=== PATIENT | female | born 1945 | race Caucasian/White ===

== ENCOUNTER 2019-09-30 08:01 | Day surgery (SDC) | payer MEDICARE, OTHER ==
[2019-09-29 09:55] VITALS: BMI 23.2
[~2019-09-30 08:01] MED LIST: DEXAMETHASONE SOD PHOSPHATE 10 MG/ML 1 ML VIAL IV ONE; LACTATED RINGERS 1,000 ML IV SCH; LIDOCAINE 1% (10MG/ML) FOR IV START INTRADERMA PRN; MOXIFLOXACIN HCL 0.5% DROPS 3 ML BTL OP ONE; ONDANSETRON 4 MG/2 ML VIAL IVP ONE; TETRACAINE 0.5% OPHTH (PF) DROPS 4 ML BTL OP ONE; TIMOLOL 0.5% OPHTH DROPS 5 ML BTL OP ONE
[2019-09-30 09:29] VITALS: TEMP 98
[2019-09-30] MEDS: CYCLOPENTOLATE 1% OPHTH SOLN 2 ML BTL OP ONE ×3 (09:33→09:46)
[2019-09-30] MEDS: PHENYLEPHRINE 2.5% OPHTH DRP 2ML OP NR ×3 (09:39→09:48)
[2019-09-30] MEDS ORDERED: LIDOCAINE 1% (PF) 10MG/ML VIAL SQ ONE (10:12)
[2019-09-30] MEDS ORDERED: TRYPAN BLUE 0.06% SYRINGE 0.5 ML SYRINGE INTRAOCULA ONE (10:12)
[2019-09-30] MEDS ORDERED: BALANCED SALT IRRIG SOLN COMB2 15 ML IRRIG.SOLN IRRIGATION ONE (10:12)
[2019-09-30] MEDS ORDERED: DUOVISC KIT (GREEN BOX) INTRAOCULA ONE (10:12)
[2019-09-30] MEDS ORDERED: EPINEPHrine (PF) 0.3 ML in BALANCED SALT IRRIG SOLN COMB2 500 ML IRRIGATION ONE (10:13)
[2019-09-30] MEDS ORDERED: ATROPINE OPHTH SOLN 1% 5ML BTL OPHTHALMIC ONE (10:46)
--- NOTE | 2019-09-30 10:51 | P.OP ---
Date of Procedure: 09/30/19 Preoperative Diagnosis: NS & CS & POAG mild stage Postoperative Diagnosis: same Procedure(s) Performed: iStent implnt and PCIOL, OS Implants: iSTent implant [id number] & BL1UT [id number] Anesthesia: MAC Surgeon: Fernando Castro Estimated Blood Loss (ml): 0 Pathology: none sent Condition: stable Disposition: same day Indications for Procedure: blurry vision and improved glaucoma control Operative Findings: no complications
[2019-09-30 10:55] VITALS: RESP 18
[2019-09-30 11:18] VITALS: BP 121/70; PULSE 62
--- NOTE | 2019-10-01 05:59 | OP ---
OPERATIVE REPORT DATE OF SURGERY: September 30, 2019 PROCEDURE: Phacoemulsification of cataract and intraocular lens implant of the left eye with iStent implantation left eye. PREOPERATIVE DIAGNOSES: Nuclear sclerosis, cortical sclerosis, regular astigmatism and primary open-angle glaucoma mild stage. POSTOPERATIVE DIAGNOSES: Nuclear sclerosis, cortical sclerosis, regular astigmatism and primary open-angle glaucoma mild stage. SURGEON: Dr. Fernando Castro. ANESTHESIA: Topical. ESTIMATED BLOOD LOSS: Less than 5 mL. SPECIMEN TAKEN: None. NARRATIVE: After obtaining the appropriate consent, the patient was brought to the operating room there she was placed under cardiac monitoring, prepped and draped in the usual sterile manner. She was approached from the left temporal side and at the 5 o'clock position an MVR blade was used to create a paracentesis port. Through this opening, 1% Xylocaine MPF 50:50 mix with balanced salt solution was injected into the anterior chamber. This was followed by installation of trypan blue which was allowed to dwell for 1 minute. This was irrigated away with balanced salt solution and the anterior chamber was stabilized with Viscoat. At the 3 o'clock position a 2.75 mm von keratome was used to create a self-sealing corneal flap incision in a Langerman's fashion. Additional Viscoat was placed on the patient's eye and the patient was rotated away approximately 45 degrees while maintaining gaze in that general direction. A gonioprism was placed on the patient's eye and an iStent Glaukos model [id number] was advanced across the anterior chamber and into the trabecular meshwork and placed within Schlemm's canal without any difficulty. A small amount of blood was identified as would be expected and the patient was then rotated back to the normal supine position. A 5.5 mm Ok ring was placed on the patient's cornea to identify the size of the capsulorrhexis as well as using previously acquired corneal topography information to identify the axis of 161 degrees, which was marked with a corneal marking ring. A cystotome was then placed in the anterior chamber to begin a continuous tear capsulorrhexis which was then completed using the Utrata forceps. Care was taken to ensure the size of the rhexis was at least the size of the Ok ring on the anterior cornea. Hydrodissection and hydrodelineation of the lens was accomplished with balanced salt solution. Phacoemulsification lens utilizing phaco chop was accomplished at 14.7 seconds at 13% power. Additional Xylocaine MPF was instilled into the anterior chamber. This was followed by removal of the remaining cortex under irrigation and aspiration along with careful polishing of the posterior capsule in the capsule vacuum mode. Provisc was then used to stabilize the capsular bag and using both Pepose and Deysi capsular cleaning instruments the underside of the anterior capsular leaflet as well as the equator of the capsular bag were cleaned more thoroughly using these 2 instruments. The temporal incision was enlarged slightly and a Bausch and Lomb crystal lens BL1UT 23.0 diopter by 2 diopter lens was placed into the capsular bag without difficulty. Irrigation aspiration instrument was then introduced into the eye to facilitate rotation of the implant into its proper orientation as well as removing all remaining cortical debris and viscoelastic around the intraocular lens and the posterior capsule. Prior to removing the irrigation aspiration instrument from the anterior chamber, the intraocular lens was tamponaded against the posterior capsule for a few moments. The irrigation aspiration instrument was removed from the anterior chamber. The eye was brought to normal intraocular pressure through the paracentesis port with balanced salt solution. The wounds, both the paracentesis and the temporal wound, were confirmed watertight, but insuring watertightness was accomplished by applying ReSure to these two areas. The eye was then dropped with 2 drops of 1% atropine, 2 drops of 0.5% timolol and 2 drops of moxifloxacin. The eye was then gently patched and shielded in the usual manner. There were no complications from the procedure. She tolerated the procedure well and was returned to outpatient recovery in good condition. MMCARIN / IJN: [id number] /
== END 2019-09-30 11:29 | disposition home or self-care (01) ==
LOC: OR 08:01
PROVIDERS: ATTEND Ophthalmology
DX: H25.13 Age-related nuclear cataract, bilateral (principal); H40.1131 Primary open-angle glaucoma, bilateral, mild stage; H25.012 Cortical age-related cataract, left eye; H04.123 Dry eye syndrome of bilateral lacrimal glands; H52.229 Regular astigmatism, unspecified eye; I11.9 Hypertensive heart disease without heart failure; I34.1 Nonrheumatic mitral (valve) prolapse; E78.5 Hyperlipidemia, unspecified; Z90.710 Acquired absence of both cervix and uterus; Z85.038 Personal history of other malignant neoplasm of large intestine; Z97.2 Presence of dental prosthetic device (complete) (partial); Z82.49 Family history of ischemic heart disease and other diseases of the circulatory system; Z82.61 Family history of arthritis; Z80.8 Family history of malignant neoplasm of other organs or systems; Z83.3 Family history of diabetes mellitus; Z83.49 Family history of other endocrine, nutritional and metabolic diseases; Z82.3 Family history of stroke; Z79.890 Hormone replacement therapy; Z79.899 Other long term (current) drug therapy; Z88.0 Allergy status to penicillin
CPT/HCPCS: 66984; 66183; V2787; C1780; C1783; J0171; J2001

== ENCOUNTER 2019-10-28 08:27 | Day surgery (SDC) | payer MEDICARE, OTHER ==
[2019-10-26 14:51] VITALS: BMI 23.2
[~2019-10-28 08:27] MED LIST changes: -DEXAMETHASONE SOD PHOSPHATE 10 MG/ML 1 ML VIAL IV ONE; -ONDANSETRON 4 MG/2 ML VIAL IVP ONE
[2019-10-28 09:09] VITALS: TEMP 97.2
[2019-10-28] MEDS: CYCLOPENTOLATE 1% OPHTH SOLN 2 ML BTL OP ONE ×2 (09:15→09:27)
[2019-10-28] MEDS: PHENYLEPHRINE 2.5% OPHTH DRP 2ML OP NR ×3 (09:18→09:32)
[2019-10-28] MEDS ORDERED: LACTATED RINGERS 1,000 ML IV ONE (09:22)
[2019-10-28] MEDS ORDERED: fentaNYL (PF) 50 MCG/ML 2 ML AMP ONE (10:11)
[2019-10-28] MEDS ORDERED: MIDAZOLAM 2 MG/2 ML VIAL ONE (10:11)
[2019-10-28] MEDS ORDERED: EPINEPHrine (PF) 0.3 ML in BALANCED SALT IRRIG SOLN COMB2 500 ML IRRIGATION ONE (10:17)
[2019-10-28] MEDS ORDERED: BALANCED SALT IRRIG SOLN COMB2 15 ML IRRIG.SOLN IRRIGATION ONE (10:19)
[2019-10-28] MEDS ORDERED: LIDOCAINE 1% (PF) 10MG/ML VIAL SQ ONE (10:19)
[2019-10-28] MEDS ORDERED: DUOVISC KIT (GREEN BOX) INTRAOCULA ONE (10:19)
--- NOTE | 2019-10-28 11:02 | P.OP ---
Date of Procedure: 10/28/19 Preoperative Diagnosis: NS & CS & POAG mild Postoperative Diagnosis: same Procedure(s) Performed: PIOL & iStent implant OD Implants: BL1UT 23.00x 2.75 & iStent left Anesthesia: MAC Surgeon: Fernando Castro Pathology: none sent Condition: stable Disposition: same day Indications for Procedure: blurry vision and glaucom control Operative Findings: no complications
[2019-10-28 11:24] VITALS: BP 134/70; PULSE 59; RESP 16
--- NOTE | 2019-10-29 06:28 | OP ---
OPERATIVE REPORT DATE OF SURGERY: October 28, 2019. PROCEDURES: Phacoemulsification of cataract with intraocular lens implantation and an iStent implant of the right eye. PREOPERATIVE DIAGNOSES: Nuclear sclerosis, cortical sclerosis and primary open-angle glaucoma mild stage. POSTOPERATIVE DIAGNOSES: Nuclear sclerosis, cortical sclerosis and primary open-angle glaucoma mild stage. SURGEON: Dr. Fernando Castro. ANESTHESIA: Topical. ESTIMATED BLOOD LOSS: Less than 5 mL. SPECIMEN TAKEN: None. NARRATIVE: After obtaining the appropriate consent, the patient was brought to the operating room. There, she was asked to sit upright and the axes 0 and 180 degrees were identified and marked with a gentian chavez marker. She was then placed in the proper supine position under cardiac monitoring, then prepped and draped in the usual sterile manner. She was approached from her right temporal side and using previously acquired corneal topography information, the axis of 6 degrees was identified and marked with a corneal marking instrument. Additionally, there was a 5.5 mm Ok ring also inked in gentian chavez which was placed squarely over the Purkinje reflex. At the 11 o'clock position an MVR blade was used to create a paracentesis port. Through this opening, 1% Xylocaine MPF 50:50 mix with balanced salt solution was injected into the anterior chamber. This was followed by installation of Trypan Blue which was allowed to dwell in the eye for approximately 1 minute. This was irrigated away with balanced salt solution and followed by stabilization of the anterior chamber with Viscoat. At the 9 o'clock position a 2.75 mm von keratome was used to create a self-sealing corneal flap incision in a Langerman's fashion. Additional viscoelastic was used to stabilize the anterior chamber and a small amount was placed on the patient's cornea. She was then asked to rotate her head approximately 45 degrees to her right and a gonioprism was placed on the patient's eye. The trabecular meshwork was easily identified and a Glaukos iStent [id number] was passed across the anterior chamber and in nasal trabecular meshwork without difficulty. A small amount of blood was refluxed at the time of placement as was expected. The patient was then rotated back to the normal supine position and a cystotome was used to begin a continuous tear capsulorrhexis which was completed using the Utrata forceps. Care was taken to ensure that the size of the capsulorrhexis was at least the size of the vianca placed on the patient's cornea. Hydrodissection and hydrodelineation of the lens was accomplished with balanced salt solution. Phacoemulsification of the lens was accomplished in 11.1 seconds at 8% power. This was followed by removal of the remaining cortex under irrigation and aspiration along with careful polishing of the posterior capsule in the capsule vacuum mode. Provisc was then used to stabilize the capsular bag and using Mccracken and Pepose capsule polishing instruments, the underside of the anterior capsular bag was cleaned as thoroughly as possible for 360 degrees. Additional Provisc was used to further stabilize the capsular bag and the internal opening of the temporal incision was enlarged slightly with the von knife. A Bausch and Lomb Trulign model BL1UT posterior chamber intraocular lens of 23 diopters by 2.75 diopters was passed into the capsular bag without difficulty. A Sinskey hook was used to seat the trailing haptics within the capsular bag. Additionally, the lens was rotated at least 270 degrees to ensure no remaining cortex was inhibiting placement of the intraocular lens. Irrigation and aspiration then was introduced into the capsular bag to remove the remaining viscoelastic from in and around the intra-ocular lens as well as against the posterior capsule. The lens was rotated to align with the axis of 6 degrees which was previously placed on the patient's cornea and the anterior chamber was then irrigated of the remaining viscoelastic. The temporal incision was hydrated with balanced salt solution as was the paracentesis. The eye was brought to slightly above normal intraocular pressure with balanced salt solution from the paracentesis site. Both the paracentesis and the temporal wound were dried with a Weck-Mariluz sponge and ReSure was placed over the 2 incisions to affirm a watertight integrity. The patient then received 2 drops of 0.5% timolol followed by 2 drops of moxifloxacin as well as 2 drops of 1% atropine. There were no complications from the procedure from the procedure. She tolerated the procedure well and was returned to outpatient recovery in good condition. MMODL / IJN: [id number] /
== END 2019-10-28 11:41 | disposition home or self-care (01) ==
LOC: OR 08:27
PROVIDERS: ATTEND Ophthalmology
DX: H25.11 Age-related nuclear cataract, right eye (principal); H25.011 Cortical age-related cataract, right eye; H40.1131 Primary open-angle glaucoma, bilateral, mild stage; H04.123 Dry eye syndrome of bilateral lacrimal glands; H00.023 Hordeolum internum right eye, unspecified eyelid; H00.026 Hordeolum internum left eye, unspecified eyelid; H52.13 Myopia, bilateral; H52.4 Presbyopia; H43.392 Other vitreous opacities, left eye; Z96.1 Presence of intraocular lens; I11.9 Hypertensive heart disease without heart failure; E78.5 Hyperlipidemia, unspecified; Z79.890 Hormone replacement therapy; Z85.038 Personal history of other malignant neoplasm of large intestine; Z90.710 Acquired absence of both cervix and uterus; Z98.890 Other specified postprocedural states; I34.1 Nonrheumatic mitral (valve) prolapse; Z90.49 Acquired absence of other specified parts of digestive tract; M19.90 Unspecified osteoarthritis, unspecified site; Z82.61 Family history of arthritis; Z80.0 Family history of malignant neoplasm of digestive organs; Z83.3 Family history of diabetes mellitus; Z82.49 Family history of ischemic heart disease and other diseases of the circulatory system; Z82.3 Family history of stroke; Z83.49 Family history of other endocrine, nutritional and metabolic diseases; Z79.899 Other long term (current) drug therapy; Z88.0 Allergy status to penicillin
CPT/HCPCS: 0191T; 66984